=== PATIENT | male | born 1970 | race Caucasian/White ===

== ENCOUNTER 2019-08-13 07:27 | Day surgery (SDC) ==
--- NOTE | 2019-08-10 09:06 | EKG Report ---
Test Performed on : 08/10/2019 09:02:19 AM Test Reason : pat Blood Pressure : / mmHG Vent. Rate : 066 BPM Atrial Rate : 066 BPM P-R Int : 196 ms QRS Dur : 092 ms QT Int : 368 ms P-R-T Axes : 040 030 011 degrees QTc Int : 385 ms Normal sinus rhythm. Low voltage QRS Borderline ECG No previous ECGs available Confirmed by Colton COFFEY, Jarod Jordan ([id number]) on 08/10/2019 6:02:35 PM
[2019-08-10 09:56] LABS: HEMATOCRIT 47.7 % (42.0-52.0); HEMOGLOBIN 16.6 g/dL (14.0-18.0); MCH 33.1 PG (27-31); MCHC 34.8 g/dL (33-37); MCV 95.2 FL (81-99); MPV 10.1 FL (7.4-10.4); RBC 5.01 XMIL (4.7-6.1); RDW 13.5 % (11.5-14.5); WBC 8.16 X1000 (4.8-10.8)
[2019-08-10 10:43] LABS: AGAP 13; BUN 14 mg/dL (8-22); CALCIUM 11.3 mg/dL (8.8-10.2); CHLORIDE 101 mmol/L (98-107); COSMO 278; CREATININE 1.2 mg/dL (0.7-1.2); ESTIMATED GFR > 60; GLUCOSE 101 mg/dL (70-104); POTASSIUM 4.1 mmol/L (3.5-5.1); SODIUM 139 mmol/L (136-145); TCO2 25 mmol/L (25-35)
[2019-08-13] MEDS ORDERED: QUELICIN (DOSE) ONE (07:38)
[2019-08-13] MEDS ORDERED: ROBINUL ONE (07:38)
[2019-08-13] MEDS ORDERED: XYLOCAINE-MPF 2% ONE ×2 (07:38→11:55)
[2019-08-13] MEDS ORDERED: DIPRIVAN 1% ONE (07:39)
[2019-08-13] MEDS ORDERED: FENTANYL ONE ×3 (07:39→11:15)
[2019-08-13] MEDS ORDERED: LR 1,000 ML ONE (07:44)
[2019-08-13] MEDS ORDERED: KEFZOL 1 GM/D5W 1 GM/50 ML IVPB ONE (07:44)
[2019-08-13] MEDS ORDERED: KEFZOL 1 GM/D5W 2 GM/100 ML IVPB ONE (09:14)
[2019-08-13] MEDS ORDERED: SENSORCAINE-MPF 0.5%/EPI 1:200,000 ONE (09:25)
[2019-08-13] MEDS ORDERED: ZEMURON ONE (10:19)
[2019-08-13] MEDS ORDERED: NEOSTIGMINE ONE (11:47)
[2019-08-13] MEDS ORDERED: NS 1,000 ML ONE (12:25)
[2019-08-13] MEDS: DILAUDID ONE ×2 (12:25→12:28)
--- NOTE | 2019-08-13 12:30 | OPERATIVE NOTE ---
PROCEDURE DATE: 08/13/2019 PROCEDURE: Total thyroidectomy. SURGEON: Yeison Gonzalez M.D. ASSISTANTS: Dr. Ash; Warren Jimenez RN; AMALIA Vera. PREOPERATIVE DIAGNOSIS: Papillary cancer of the thyroid. POSTOPERATIVE DIAGNOSIS: Papillary cancer of the thyroid. DESCRIPTION OF PROCEDURE: Satisfactory general endotracheal anesthesia was achieved. The neck was gently extended. The anterior neck was prepped and draped in a sterile fashion. We made an incision in the skin line, 5 cm on each side of the midline. We carried our incision to the platysma. We then developed a subplatysmal plane superiorly past the thyroid prominence and inferior to the sternal notch. We incised the cervical fascia, thereby the strap muscles in the midline. We began on the right side. The gland was rather deep in the neck. 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 The superior pole mass was calcific and was the source of the class 5 cytology on FNA. We identified the trachea inferiorly. We then began rolling the gland out the inferior portion. The right inferior pole had a very large nodule, more fleshy in character. We stayed very close to the gland, and used a hemostat to separate areolar tissue. In the mid aspect of the gland, we had used electrocautery to separate the connective tissue to allow rolling the gland more toward the midline. It was quite a struggle to lift the gland out of its bed because it was stuck. We carefully dissected very close to the gland. We identified what we thought was probably the inferior parathyroid, and never identified the superior parathyroid. We also never identified the recurrent nerve on the right side because the tissue was stuck, but again, we stayed very close to the gland to avoid hopefully pulling the nerve to the gland and injuring it. As we continued to roll the gland medially, we had to use the electrocautery and the LigaSure to divide the tissue until we were able to separate the gland all the way to the trachea. We divided the right side of the isthmus, and sent this portion of the gland for frozen section. The frozen section was a bit delayed, but finally got back the report that the superior mass was papillary cancer. They could not tell me yet about the inferior pole mass, so we then turned our attention to the other side. We again retracted the strap muscles, and isolated the superior pole vessels, passed a right angle around them, and used the LigaSure to divide them. We left the hemostat on the superior pole so that we could mobilize it more medially. Again, the left inferior pole was a fairly large nodule, and we stayed close to the gland, again rolling the gland medially, trying to dissect the areolar tissue away from the gland so that we would protect the parathyroids and the nerve. We identified what we thought was the superior parathyroid, and stayed away from it. I did not identified an inferior parathyroid on the left side. There did appear to be some columba tissue attached to the isthmus, and we kept that attached to the gland. We divided the tissue inferiorly to include the columba tissue. There appeared to be maybe a thyroidemia superiorly. We took it as well, and we continued to roll the gland, staying very close to the gland, dissecting the tissue away from it. I do think we protected the nerve on the left side. We continued to dissect until we reached the trachea, and then we amputated the gland from the trachea. This included the isthmus, the left thyroid lobe, the thyroidemia, and what columba tissue was attached to it. Satisfactory hemostasis was achieved. We did use some Avitene powder in the wound to help achieve complete hemostasis from the gland. We irrigated out both sides prior to the use of the Avitene. We placed a David drain within the wound, brought it out inferiorly and to the left of the midline, secured it to the skin with a 2-0 silk. We then proceeded to close the cervical fascia with 3-0 Polysorb. The platysma was reapproximated with 3-0 Polysorb. We used the rest of our local as 0.5 Marcaine with epinephrine in the subcutaneous tissue, and then closed the skin with a 4-0 Polysorb subcuticular stitch. A sterile dressing was applied. He tolerated the procedure satisfactory, and was sent to the recovery room in satisfactory condition. cc: MD Sharon Doe CRNP
[2019-08-13] MEDS ORDERED: DILAUDID IV PRN (13:17)
[2019-08-13] MEDS ORDERED: ZOFRAN IV PRN (13:17)
[2019-08-13] MEDS ORDERED: NORCO-10 PO PRN (13:17)
--- NOTE | 2019-08-13 15:40 | GENERAL SURGERY PROGRESS NOTE ---
DATE: 08/13/2019 TIME: It is 3:25 in the afternoon. Mr. Mathur is awake, alert, and comfortable. He has been taking liquid satisfactorily. He is not hoarse. His Chvostek's sign is negative thus far. PLAN: To check his calcium in the morning. We will determine what it is and consider him for drain removal then. We have started on levothyroxine. cc: Yeison Gonzalez MD
[2019-08-13] MEDS: NS 1,000 ML IV SCH (18:52)
[2019-08-14] MEDS ORDERED: SYNTHROID PO SCH (07:00)
[2019-08-14 07:24] VITALS: BP 148/96
[2019-08-14] MEDS ORDERED: TOPROL XL PO SCH (09:00)
[2019-08-14] MEDS ORDERED: ALDACTONE PO SCH (09:00)
[2019-08-14] MEDS ORDERED: PRINIVIL PO SCH (09:00)
[2019-08-14] MEDS ORDERED: COLCRYS PO SCH (09:00)
[2019-08-14] MEDS: NS 1,000 ML IV SCH (10:04)
--- NOTE | 2019-08-14 14:44 | GENERAL SURGERY PROGRESS NOTE ---
DATE: 08/14/2019 Mr. Mathur is doing fine. He is not hoarse. He has a negative Chvostek's sign. Calcium this morning is 10.3. He is still draining a moderate amount so we will discharge him. We will allow him to keep his drain until Saturday. We will remove his drain on Saturday when he comes back to the office. cc: Yeison Gonzalez MD
== END 2019-08-14 12:03 | disposition home or self-care (01) ==
LOC: 4N 07:27 → PAT 07:27 → OPS 07:27
PROVIDERS: ATTEND Surgery
PROC: GE.THYR (2019-08-13 09:21)